=== PATIENT | male | born 1935 | race Caucasian/White ===

== ENCOUNTER 2021-11-19 06:00 | Day surgery (SDC) | payer OTHER ==
--- NOTE | 2021-11-18 14:27 | RAD REPORT ---
EXAM DESCRIPTION: RAD - Chest Pa And Lat (2 Views) - 11/18/2021 2:14 pm CLINICAL HISTORY: pre op, pending hernia repair, history of atrial fibrillation, hypertension and pr ostate cancer COMPARISON: Two view chest December 2007 TECHNIQUE: Frontal and lateral views of the chest were obtained. FINDINGS: The lungs are underinflated. Fibrotic lung pattern is present and there has been some prog ression from prior imaging. Progressive fibrosis is favored over or acute edema or infiltrate. No princess lure findings. Heart size within normal limits. No pleural effusion or pneumothorax seen. No acute bony finding noted. Aortic calcifications are present without aneurysm. IMPRESSION: Chronic interstitial lung disease progressive from 2007 comparison. No acute cardiopulmonary finding.
[2021-11-18 14:33] LABS: Absolute Lymphocytes (CBC) 1.1 K/uL (0.7-4.9); Hematocrit 42.4 % (39.6-49.0); Lymphocytes % 13.9 % (15.3-44.8); MPV 8.4 fL (7.6-11.3); RBC Red Blood Cell Count 4.84 M/uL (4.33-5.43)
[2021-11-18 14:53] LABS: Potassium 4.5 mmol/L (3.5-5.1)
[2021-11-19] MEDS ORDERED: CEFAZOLIN SODIUM 1 GM/VIAL ONE (06:52)
[2021-11-19] MEDS ORDERED: NA CHLORIDE 0.9% 50 ML ONE (06:52)
[2021-11-19] MEDS ORDERED: Ringers Lactate 1,000 ML IV ONE (06:52)
[2021-11-19] MEDS ORDERED: FENTANYL CITR 100 MCG/2 ML ONE (07:02)
[2021-11-19] MEDS ORDERED: LIDOCAINE 1% MPF 5 ML VIAL ONE (07:02)
[2021-11-19] MEDS ORDERED: propofoL 200 MG/20 ML VIAL IV ONE (07:02)
[2021-11-19] MEDS ORDERED: MIDAZOLAM HCL 2 MG/2 ML INJ ONE (07:02)
[2021-11-19] MEDS ORDERED: ONDANSETRON 4 MG/2 ML VIAL ONE (07:05)
[2021-11-19] MEDS ORDERED: ROCURONIUM 50 MG/5 ML VIAL IV ONE (07:10)
[2021-11-19] MEDS ORDERED: SUCCINYLCHOLINE 20 MG/ML (10 ML) IV ONE (07:15)
[2021-11-19] MEDS ORDERED: EPHEDRINE SULF 50 MG/ML VIAL ONE (07:58)
[2021-11-19] MEDS ORDERED: Phenylephrine HCl 10 MG/ML 1 ML VIAL ONE (07:58)
[2021-11-19] MEDS ORDERED: GLYCOPYRROLATE 0.2 MG/ML SYR ONE (08:15)
--- NOTE | 2021-11-19 08:17 | P.BOP ---
Preoperative diagnosis: tender right inguinal hernia Postoperative diagnosis: same Primary procedure: Open repair of tender right inguinal hernia with mesh Collet Gluer: MARIA ANTONIA GUY ([employer] DEVELOPER) Estimated blood loss: <10cc Specimen: sac Findings: as above Anesthesia: General Complications: None Implants: mesh plug and sheet Fluids & blood products: no blood Transferred to: Recovery Room Condition: Good
[2021-11-19 08:37] VITALS: O2SAT 100
[2021-11-19 10:24] VITALS: BP 146/94; TEMP 96.9
--- NOTE | 2021-11-19 20:28 | OP ---
Date of Procedure: 11/19/2021 Surgeon: Warren Rothman MD Fence Rider: RAY Dawn. Preoperative Diagnosis: Tender right inguinal hernia. Postoperative Diagnosis: Tender right inguinal hernia. Procedure: Open repair of tender right inguinal hernia with mesh. Estimated Blood Loss: Less than 10 mL. Specimen: Hernia sac. Anesthesia: General plus local. Findings: Right inguinal hernia. Complications: None. Implant: A mesh plug and sheet and no blood products used. Indication: This is the case of an 86-year-old patient who comes to us with an enlarging right ingui nal hernia with tenderness even though is reducible is becoming more difficult with time. The benefi ts, alternatives, and risks of open repair of right inguinal hernia with mesh fully discussed with th e patient, which include, but not limited to infection, bleeding, damage to adjacent structures, anes thesia complication, recurrence, chronic pain, chronic numbness, [place], and . He also understands this may not relieve the symptoms. He might need more than one surgical intervention. He also under stands we are going to use mesh. Pros and cons of mesh use were discussed with the patient and he co nsented for the surgery and the mesh. The area of concern was marked by me and the patient in the ho lding room. Procedure In Detail: The patient was brought to the operating room, placed in supine position. Anes thesia was done without complication. Abdominal area was prepped and draped in the usual sterile fas hion including the right inguinal region. Local anesthesia was applied and then after that, a sharp incision of the skin was made going to Enoch fascia until we find an external oblique aponeurosis an d opened the fibers in the direction of the fibers to meet the superficial inguinal ring. The ilioin guinal nerve and iliohypogastric nerve were clearly identified and protected behind external oblique aponeurosis. Uyen placed around the spermatic cord, which were protected at all times. Hernia sa c was identified, carefully dissected free from the spermatic cord, opened and suture ligated after m aking sure there are no intestines in that area and this suture ligated with Prolene stitches x2. Th e hernia sac was then ligated. The mesh plug was placed in that area securing that in place with Magdalene saTack once again protecting the spermatic cord structures including the vas deferens. The floor of the canal we reinforced the area with the use of mesh sheet and was secured in place with VersaTack t o the pubic tubercle, shelving edge of inguinal ligament in transversalis fascia. The loops around t he spermatic cord without strangulation. The area was irrigated. No bleeding. The inguinal nerve a nd iliohypogastric nerve brought back into the inguinal canal area. The superficial inguinal ring wa s reconstructed and external oblique aponeurosis was closed with Prolene making sure the nerves were not included. The area was irrigated. Then, Enoch's fascia closed with 3-0 chromic and the skin wi th andrew. Sponge count, instrument counts correct. The patient tolerated the procedure well. The patient was sent to recovery in stable condition. ATA/LUCINA Voice ID: [id number] Report ID: [id number]
--- NOTE | 2021-11-19 20:29 | OP ---
Surgeon: Warren Rothman MD Diagnosis: Tender right inguinal hernia Procedure: Open repair of tender right inguinal hernia with mesh. Disposition: Home. Activity: As tolerated. No heavy lifting. Plan: Follow up in my office in 1 week. Call for appointment at [phone]. Keep area dry for 48 hours , then may shower. Keep andrew intact, may cover that with dressings. Cold compress the right ingui nal region for 24 hours. The patient advised to once again discuss with his primary doctor resuming the blood thinner. It should be okay by the surgical standpoint by tomorrow. ATA/LUCINA Voice ID: [id number] Report ID: [id number]
== END 2021-11-19 09:40 | disposition home or self-care (01) ==
LOC: OR 06:00
PROVIDERS: ATTEND Surgery
PROC: 0YU50JZ Supplement Right Inguinal Region with Synthetic Substitute, Open Approach (ICD-10-PCS; principal; 2021-11-19 07:30)
DX: K40.90 Unilateral inguinal hernia, without obstruction or gangrene, not specified as recurrent (principal); Z20.822 Contact with and (suspected) exposure to COVID-19
CPT/HCPCS: 85025; 80048; 36415; 88302; 71046; 49505; U0003; J2704; J2250; J3010; J7120; J2405; J0690; J0330; J2370